=== PATIENT | male | born 1990 | race Caucasian/White ===

== ENCOUNTER 2024-09-11 06:09 | Day surgery (SDC) | payer BC ==
[2024-09-11 06:23] VITALS: RESP 16
[2024-09-11] MEDS ORDERED: Versed 2 MG/2 ML Injection ONE (08:06)
[2024-09-11] MEDS ORDERED: Xylocaine-Mpf 2% 5 Ml Vial ONE (08:06)
[2024-09-11] MEDS ORDERED: DIPRIVAN 200 MG/20 ML IV ONE (08:06)
[2024-09-11 08:36] VITALS: O2SAT 95
[2024-09-11 08:38] VITALS: BP 157/87; PULSE 79; TEMP 98.8
--- NOTE | 2024-09-13 11:22 | OP ---
SURGERY DATE/TIME: 09/11/2024 [id number] PREOPERATIVE DIAGNOSIS: Dysphagia. POSTOPERATIVE DIAGNOSES: Small hiatal hernia, moderate gastritis. PROCEDURE: Esophagogastroduodenoscopy and cold forceps biopsy of the gastric antrum to rule out Helicobacter pylori. SURGEON: Fermin Mayorga MD ANESTHESIA: Medications were given by the anesthesia department. INDICATIONS: The patient is a 34-year-old white male patient who reports he has been having dysphagia for quite some time. He reports he actually gets food stuck in his throat and at times has to just bring it up to get better, although he reports over the past 2 months he has been on pantoprazole and has only had 2 episodes since he started on the pantoprazole. The patient was felt to need to have endoscopic evaluation. He was apprised of the risks of the procedure including the risk of perforation, phlebitis, untoward reaction to medication, bleeding, and missed lesions. The patient verbalized understanding and desired to have the procedure performed. DESCRIPTION OF PROCEDURE AND FINDINGS: Patient was given medication by the anesthesia department. He had continuous pulse oximetry, ECG monitoring, and intermittent blood pressure monitoring during the examination. He was placed in the left lateral decubitus position. A bite block was placed. A flexible Olympus gastroscope was used to intubate the oropharynx. A view of the larynx was obtained and was normal. The scope was easily introduced throughout the esophagus and no strictures or other pathology was noted. It did have the appearance of what appeared to be a probable small hiatal hernia. The stomach was entered, where normal gastric rugal folds were seen. There was some inflammation in the body of the stomach. There were no erosions or ulcerations noted. The scope was passed along the greater curvature of the stomach to the antrum. The pylorus was encountered and easily intubated. The duodenum was inspected and found to be normal. The scope was withdrawn toward the stomach. Again, retroflexed view was obtained of the lesser curvature, fundus, and cardia regions of the stomach, and no significant pathology was noted. The scope was redirected toward the gastric antrum where biopsies were obtained to rule out the presence of Helicobacter pylori-type organisms. The scope was then removed from the patient who tolerated the procedure well and was sent back to outpatient recovery in good condition.
== END 2024-09-11 08:45 | disposition home or self-care (01) ==
LOC: SDC 06:09
PROVIDERS: ATTEND Family Medicine
DX: K29.70 Gastritis, unspecified, without bleeding (principal); K44.9 Diaphragmatic hernia without obstruction or gangrene; R13.10 Dysphagia, unspecified
CPT/HCPCS: J2250; J2704